=== PATIENT | male | born 1965 | race Asian ===

== ENCOUNTER 2018-11-22 01:04 | Emergency (ER) | payer BC ==
[~2018-11-22] VITALS: Ht 170.2 cm; Wt 84.9 kg
[2018-11-22 01:09] VITALS: BP 121/99
--- NOTE | 2018-11-22 04:20 | NUR ---
PT AMBULATED TO BED
--- NOTE | 2018-11-22 04:25 | NUR ---
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 PT REPORTS IMPROVEMENT WITH SYMPTOMS AT THIS TIME BUT NONRADIATING MIDCHEST PAIN PERSISTS. PT AWAKE AND ALERT, SKIN NORMAL WARM AND DRY, SPO2 99% ON RA, RR 12 EVEN AND UNLABORED. LUNG SOUNDS CLEAR BL. HR 64 EVEN AND REGULAR, NSR ON MONITOR. BP 122/91. HX GERD; DENIES CARDIAC HX; DENIES RX OR OTC. REPORTS DAILY CAFFEINE USE; DENIES ALCOHOL/SUBSTANCE ABUSE.
[2018-11-22 07:04] LABS: BASOPHILS % (AUTO) 0.1 % (0.0-2.0); HEMATOCRIT 46.9 % (36-52); HEMOGLOBIN 15.8 g/dL (12.0-18.0); LYMPHOCYTES # (AUTO) 1.1 K/uL (2.0-11.5); LYMPHOCYTES % (AUTO) 10.4 % (20.5-51.1); MEAN CORPUSCULAR HEMOGLOBIN 31 pg (27-31); MEAN CORPUSCULAR HGB CONC 34 g/dL (33-37); MEAN CORPUSCULAR VOLUME 92.9 fL (80-94); MONOCYTES # (AUTO) 0.6 K/uL (0.8-1.0); MONOCYTES % (AUTO) 5.8 % (1.7-9.3); NEUTROPHILS # (AUTO) 8.7 K/uL (1.8-7.7); NEUTROPHILS % (AUTO) 83.7 % (42.2-75.2); PLATELET COUNT (AUTO) 266 K/uL (140-450); RED BLOOD CELL COUNT(AUTO) 5.05 MIL/uL (4.20-6.10); RED CELL DISTRIBUTION WIDTH 13.3 % (11.6-13.7); WHITE BLOOD COUNT (AUTO) 10.3 K/uL (4.8-10.8)
--- NOTE | 2018-11-22 07:05 | NUR ---
Pt report given to RONNA VALADEZ. Transfer of care at this time.
[2018-11-22 07:12] LABS: ANION GAP 17.2 (8-16); CARBON DIOXIDE 25.9 mmol/L (21-32); POTASSIUM 4.1 mmol/L (3.5-5.1)
[2018-11-22 07:19] LABS: ALBUMIN 4.2 g/dL (3.4-5.0); TOTAL BILIRUBIN 1.2 mg/dL (0.0-1.0)
--- NOTE | 2018-11-22 07:34 | NUR ---
TROPONIN 21.172, DR FIGUEROA NOTIFIED
[2018-11-22] MEDS ORDERED: ASPIRIN 325 MG TAB PO ONE (07:40)
[2018-11-22] MEDS ORDERED: NITROGLYCERIN 0.4 MG TAB SL ONE (07:40)
--- NOTE | 2018-11-22 07:45 | NUR ---
RONNIE EMT AT BEDSIDE FOR EKG
--- NOTE | 2018-11-22 07:45 | NUR ---
DR FIGUEROA AT BEDSIDE
[2018-11-22] MEDS ORDERED: ACETAMINOPHEN 325 MG TAB PO PRN (07:55)
[2018-11-22] MEDS ORDERED: ONDANSETRON 4 MG/2 ML VIAL IVP PRN (07:55)
[2018-11-22] MEDS ORDERED: HYDROcodone/APAP 7.5/325 MG 1 TAB PO PRN (07:55)
[2018-11-22] MEDS ORDERED: hePARIN / DEXT 5% PREMIX 250 ML IV SCH ×2 (08:00→10:50)
[2018-11-22] MEDS ORDERED: HEPARIN PER PHARMACY MC PRN (08:00)
--- NOTE | 2018-11-22 08:13 | NUR ---
PT AMB TO RESTROOM WITH STEADY GAIT
--- NOTE | 2018-11-22 08:26 | NUR ---
PT [id number]. PAIN 4/10 AT THIS TIME. DENIES DIZZINESS, N/V/D, BLURRY VISION. RR EVEN AND UNLABORED. NO SIGNS OF DISTRESS AT THIS TIME.
[2018-11-22] MEDS ORDERED: METOPROLOL 25 MG TAB PO SCH ×2 (08:30→21:00)
[2018-11-22] MEDS ORDERED: LISINOPRIL 5 MG TAB PO SCH (08:30)
[2018-11-22 08:58] LABS: PROTHROMBIN TIME 10.1 secs (10.8-13.4)
[2018-11-22] MEDS ORDERED: DOCUSATE SODIUM 100 MG GELCAP PO SCH (09:00)
[2018-11-22] MEDS ORDERED: ASPIRIN 81 MG TAB.CHEW PO SCH (09:00)
[2018-11-22 09:06] LABS: FREE T4 (FREE THYROXINE) 1.08 ng/dL (0.76-1.46); MAGNESIUM 2.2 mg/dL (1.8-2.4); PHOSPHORUS 4.6 mg/dL (2.5-4.9); THYROID STIMULATING HORMONE 0.58 uIU/mL (0.34-3.74)
--- NOTE | 2018-11-22 09:06 | NUR ---
PER CHARGE DAPHNEY FRIEND, HOLD PHARMACY FLOOR ORDERS FOR NOW PATINT MAY BE TRANSFERED TO ANOTHER FACILITY.
[2018-11-22 09:32] LABS: APPEARANCE,URINE CLEAR (CLEAR); BILIRUBIN,URINE NEGATIVE (NEGATIVE); BLOOD, URINE TRACE-I (NEGATIVE); COLOR,URINE YELLOW (YELLOW); LEUKOCYTE ESTERASE ,URINE NEGATIVE (NEGATIVE); NITRITE, URINE NEGATIVE (NEGATIVE); UGLUCOSE NEGATIVE (NEGATIVE)
[2018-11-22 09:41] LABS: BARBITURATE, URINE NEG. ng/ml (NEG <=200); BENZODIAZEPINE, URINE NEG. ng/mL (NEG <=200); CANNABINOID, URINE NEG. ng/mL (NEG <=50); COCAINE, URINE NEG. ng/mL (NEG <=300); OPIATE, URINE NEG. ng/mL (NEG <=2000); PHENCYCLIDINE SCREEN,URINE NEG. ng/mL (NEG <=25)
[2018-11-22 10:00] LABS: WBC,URINE 0-5 /HPF (0-5)
[2018-11-22] MEDS ORDERED: HEPARIN PER PHARMACY MC ONE (10:35)
[2018-11-22] MEDS ORDERED: hePARIN / DEXT 5% PREMIX 250 ML IV ONE ×2 (10:35→10:45)
--- NOTE | 2018-11-22 10:40 | NUR ---
PATIENT TAKEN TO SCALE TO GET ACCURATE WEIGHT. 187.4 LBS
--- NOTE | 2018-11-22 11:09 | NUR ---
Patient to be transferred to [facility] ER. Is being transferred due to HIGH LEVEL OF CARE-[facility]ATHLAB. Receiving facility has accepting physician and available space. ER physician has signed transfer form. Patient or responsible republican has agreed to transfer and signed form. Patient belongings inventoried and will be sent with patient. Copy of nursing notes, lab reports, EKG, Physicians Orders and X-rays to be sent with patient. Report called to FRAN FRIEND at receiving facility. [facility] IS HERE FOR PATIENT TRANSFER.
[2018-11-22 11:10] VITALS: BP 126/85
--- NOTE | 2018-11-22 11:10 | NUR ---
REPORT GIVEN TO TRANSFER TEAM.
--- NOTE | 2018-11-22 11:17 | NUR ---
PT LEAVING [place] AND BEING TRANSFERRRED AT THIS TIME
[2018-11-22] MEDS ORDERED: ATORVASTATIN 20 MG TAB PO SCH (21:00)
[2018-11-23] MEDS ORDERED: LISINOPRIL 5 MG TAB PO SCH (09:00)
== END 2018-11-22 07:45 | disposition short-term general hospital (02) ==
LOC: MED 01:04
DX: R07.81 Pleurodynia (principal); M79.601 Pain in right arm; M79.602 Pain in left arm; K21.9 Gastro-esophageal reflux disease without esophagitis
CPT/HCPCS: 36415; 71045; 80053; 80305; 81001; 82150; 83036; 83690; 83735; 83880; 84100; 84439; 84443; 84484; 85025; 85379; 85610; 85730; 87086; 93005; 93307; 96374; 99291; J1644; Q0092